=== PATIENT | female | born 1975 | race Caucasian/White ===

== ENCOUNTER 2024-08-19 16:40 | Emergency (ER) | payer OTHER, SELFPAY ==
[2024-08-19 16:54] VITALS: BP 139/75; PULSE 64; RESP 16; TEMP 36.3; O2SAT 100; BMI 28.7
--- NOTE | 2024-08-19 17:09 | DI.RAD.S_ITS ---
PROCEDURE: XR HAND RT MIN 3V INDICATIONS: bit by a [place]. felt a hard pop TECHNIQUE: 3 views of the hand(s) acquired. COMPARISON: None. FINDINGS: Bones: No fractures or dislocations. Carpal bones are normally aligned. No suspicious bony lesions. Age-appropriate bony degenerative changes are seen. Soft tissues: No suspicious soft tissue calcifications. No radiopaque foreign bodies are seen. IMPRESSION: No displaced fractures are seen on these plain films. No radiopaque foreign bodies are seen. Dictated by: Kike Dooley M.D. on 08/19/2024 at 17:12 Approved by: Kike Dooley M.D. on 08/19/2024 at 17:13
[2024-08-19] MEDS: TET,DIPH,PERTUSS(ACELL),VAC/PF 0.5 ML SYRINGE IM (17:24)
[2024-08-19] MEDS: LIDOCAINE/PRILOCAINE 5 GM TOP (17:42)
[2024-08-19] MEDS: CLINDAMYCIN 150 MG CAPSULE 300 MG PO (17:48)
[2024-08-19] MEDS: CIPROFLOXACIN 250 MG TABLET 500 MG PO (17:48)
--- NOTE | 2024-08-19 18:03 | ED_ITS ---
HPI - Animal Bite General Chief Complaint: Animal Bite Stated Complaint: Animal Bite Time Seen by Provider: 08/19/24 17:41 Source: patient Mode of arrival: Family Vehicle History of Present Illness HPI narrative: Patient is a healthy 48-year-old female who presents today with right hand injury. She was visiting a while like thinks urinary and bit by an animal [place], on hold from the [facility]. Apparently waiting for habitat to be r econstructed, animal has been in captivity for some time. Patient put her hand close to the animal when it grabbed her and bit the palm of her hand. Her immunizations are up-to-date Related Data Previous Rx's Medication Instructions Recorded ciprofloxacin HCl 500 mg tablet 500 mg PO BID #14 tabs 08/19/24 (Cipro) clindamycin HCl 300 mg capsule 300 mg PO TID #21 caps 08/19/24 (Cleocin HCl) Allergies Allergy/AdvReac Type Severity Reaction Status Date / Time Penicillins Allergy Anaphylaxis Verified 08/19/24 17:10 Patient History Social History Smoking Status: Former smoker Smoking Status: Former smoker tobacco type: cigarettes alcohol intake frequency: 0-2 drinks per day Substance Use Type: does not use Exam Initial Vital Signs Initial Vital Signs: Vital Signs Temperature 97.3 F L 08/19/24 16:54 Pulse Rate 64 08/19/24 16:54 Respiratory Rate 16 08/19/24 16:54 Blood Pressure 139/75 08/19/24 16:54 Pulse Oximetry 100 08/19/24 16:54 Oxygen Delivery Method Room Air 08/19/24 16:54 GENERAL: Well-appearing, well-nourished and in no acute distress. CARDIOVASCULAR: peripheral pulses in tact, cap refill <2 sec RESPIRATORY: No respiratory distress, speaks in full sentences without difficulty EXTREMITIES: Normal range of motion, no clubbing or edema. Neurovascularly intact NEUROLOGICAL: Cranial nerves II through XII grossly intact. Normal gait and speech. SKIN: Right hand 2 x1 cm lacerations on the palm near the wrist neurovascularly intact. Multiple superficial scratches on her arms Procedures Laceration Repair Laceration 1: Site: hand (#1) Side (If applicable): right Size (cm): 1 Description: linear Depth: simple, single layer Local Anesthetic: lidocaine 1% Amount of anesthesia used (mL): 3 Pre-repair: wound explored, irrigated extensively and deep structures intact Skin layer closed with: nylon Skin layer suture size: 4-0 Number of sutures: 1 Technique: simple, interrupted Laceration 2: Site: hand (#2) Side (If applicable): right Size (cm): 1 Description: linear Depth: simple, single layer Local Anesthetic: lidocaine 1% Amount of anesthesia used (mL): 3 Pre-repair: wound explored, irrigated extensively and deep structures intact Skin layer closed with: nylon Skin layer suture size: 4-0 Number of sutures: 1 Technique: simple, interrupted Course Orders Ordered: ED Orders 08/19/24 17:09 XR hand RT min 3V Stat Discontinued Medications Acetaminophen (Acetaminophen 325 Mg Tablet) 975 mg PO NOW ONE Stop: 08/19/24 19:10 Last Admin: 08/19/24 19:22 Dose: 975 mg Documented By: TC Ciprofloxacin (Ciprofloxacin 250 Mg Tablet) 500 mg PO NOW ONE Stop: 08/19/24 17:42 Last Admin: 08/19/24 17:48 Dose: 500 mg Documented By: TC Clindamycin HCl (Clindamycin 150 Mg Capsule) 300 mg PO NOW ONE Stop: 08/19/24 17:42 Last Admin: 08/19/24 17:48 Dose: 300 mg Documented By: TC Diphtheria/Tetanus/Acell Pertussis (Tet,Diph,Pertuss(Acell),Vac/Pf 0.5 Ml Syringe) 0.5 ml IM .ONCE ONE Stop: 08/19/24 17:12 Last Admin: 08/19/24 17:24 Dose: 0.5 ml Documented By: TC Ibuprofen (Ibuprofen 400 Mg Tablet) 800 mg PO NOW ONE Stop: 08/19/24 19:10 Last Admin: 08/19/24 19:23 Dose: 800 mg Documented By: TC Lidocaine/Prilocaine (Lidocaine/Prilocaine 5 Gm) 5 gm TOP NOW ONE Stop: 08/19/24 17:42 Last Admin: 08/19/24 17:42 Dose: 5 gm Documented By: TC Rabies Immune Globulin (Rabies Immune Globulin 300 Unit/Ml 3ml Vial) 1,715 unit 20 unit/kg (1715 unit) IM NOW ONE Stop: 08/19/24 18:29 Last Admin: 08/19/24 19:11 Dose: 1,715 unit Documented By: TAPAN Rabies Vaccine (Rabies Vaccine (Rabavert) 2.5 Units Syringe) 2.5 units IM .ONCE ONE Stop: 08/19/24 18:29 Last Admin: 08/19/24 19:12 Dose: 2.5 units Documented By: TAPAN Vital Signs Vital signs: Vital Signs - 8 hr 08/19/24 19:30 08/19/24 19:31 08/19/24 19:31 Temperature Pulse Rate 74 69 Respiratory Rate 18 Blood Pressure 140/88 Pulse Oximetry 97 98 Oxygen Delivery Method 08/19/24 19:32 Temperature 97.5 F L Pulse Rate 73 Respiratory Rate 16 Blood Pressure 140/88 Pulse Oximetry 99 Oxygen Delivery Method Room Air MDM - Animal Bite Imaging Data Extremity x-ray #1: Radiologist's Impression: PROCEDURE: XR HAND RT MIN 3V INDICATIONS: bit by a [place]. felt a hard pop TECHNIQUE: 3 views of the hand(s) acquired. COMPARISON: None. FINDINGS: Bones: No fractures or dislocations. Carpal bones are normally aligned. No suspicious bony lesions. Age-appropriate bony degenerative changes are seen. Soft tissues: No suspicious soft tissue calcifications. No radiopaque foreign bodies are seen. IMPRESSION: No displaced fractures are seen on these plain films. No radiopaque foreign bodies are seen. Dictated by: Kike Dooley M.D. on 08/19/2024 at 17:12 Approved by: Kike Dooley M.D. on 08/19/2024 at 17:13 [facility] Narrative Medical decision making narrative: Patient is a healthy 48-year-old female who presents today animal bite to the right hand. It is a wild animal, animal is in captivity, unclear with the rabies risk is. We discussed rabies vaccine and immunoglobulin. At this time I think it is reasonable although the animal is contained in could be monitored for rabies. Both patient and agreed to the immunoglobulin and immunization. Wounds were easily irrigated and repaired Patient is allergic to penicillin, given Cipro and Clinda X-ray reviewed no foreign body Discharge Plan Departure Patient Disposition: Home Clinical Impression: Bite by animal Instructions: DI for Animal Bites Activity Restrictions/Additional Instructions: *You have been diagnosed with [place] bite *What to do: Keep clean and dry with soap and water have sutures removed in about 5-7 days by your primary care provider I do think it is reasonable to continue with the rabies treatment. He would need a rabies vaccine on day 3,7 and 14 (August 22, August 26 and September 02) Elevation and ice as often as possible *Continue to take medications as directed Cipro 500 mg twice a day for 7 days Clindamycin 300 mg 3 times a day for 7 days Tylenol and Motrin as needed for pain *Follow up with your primary care provider in 2-3 days or call [phone] *Return to ER if you should have increasing redness swelling pain or any new, worsening or concerning symptoms Prescriptions: New ciprofloxacin HCl [Cipro] 500 mg tablet 500 mg PO BID Qty: 14 0RF clindamycin HCl [Cleocin HCl] 300 mg capsule 300 mg PO TID Qty: 21 0RF Stand Alone Forms: Patient Portal/API
[2024-08-19] MEDS: RABIES IMMUNE GLOBULIN 300 UNIT/ML 1715 UNIT IM (19:11)
[2024-08-19] MEDS: RABIES VACCINE (RABAVERT) 2.5 UNITS SYRINGE IM (19:12)
[2024-08-19] MEDS: ACETAMINOPHEN 325 MG TABLET 975 MG PO (19:22)
[2024-08-19] MEDS: IBUPROFEN 400 MG TABLET 800 MG PO (19:23)
[2024-08-19 19:30] VITALS: PULSE 74; O2SAT 97
[2024-08-19 19:31] VITALS: BP 140/88; PULSE 69; RESP 18; O2SAT 98
[2024-08-19 19:32] VITALS: BP 140/88; PULSE 73; RESP 16; TEMP 36.4; O2SAT 99
== END 2024-08-19 19:33 | disposition home or self-care (01) ==
PROVIDERS: Emergency Provider Emergency Medicine
DX: S61.451A Open bite of right hand, initial encounter (principal); W55.81XA Bitten by other mammals, initial encounter; Z23 Encounter for immunization
CPT/HCPCS: 73130; 90375; 90471; 90675; 96372; 99283; 90715